=== PATIENT | female | born 1995 | race Caucasian/White ===

== ENCOUNTER 2020-07-14 05:41 | Emergency (ER) | payer OTHER ==
[~2020-07-14] VITALS: Ht 165.1 cm; Wt 68.0 kg
--- NOTE | 2020-07-14 05:47 | NUR ---
PATIENT CAME TO ER BED 16 C/O RASH INSIDE AND AROUND THE PELVIC AND BUTTOCKS REGION. PATIENT STATES THAT SHE USED [facility] AND BEGAN HAVING RASHES AROUND 2 DAYS AGO. PATIENT DENIES ANY VAGINAL DISCHARGE. PATIENT DENIES NAUSEA VOMITING. PATIENT IS AAOX4. AMBULATORY WITH A STEADY GAIT. BREATHING EVENLY AND UNLABORED ON ROOM AIR.
--- NOTE | 2020-07-14 06:32 | NUR ---
pt refused to provide urine sample at this time. will f/u
[2020-07-14] MEDS ORDERED: CLINDAMYCIN 900 MG/6 ML VIAL ONE (06:49)
[2020-07-14] MEDS ORDERED: SULFAMETH/TRIMETH 800/160 MG 1 UDTAB TABLET ONE (06:50)
[2020-07-14] MEDS: SULFAMETH/TRIMETH 800/160 MG 1 UDTAB TABLET PO ONE (07:07)
[2020-07-14] MEDS: CLINDAMYCIN 900 MG/6 ML VIAL IM ONE (07:07)
[2020-07-14 07:17] VITALS: BP 132/78
--- NOTE | 2020-07-14 07:17 | NUR ---
Patient discharged to home in stable condition. Written and verbal after care instructions given. Patient verbalizes understanding of instruction.
--- NOTE | 2020-07-14 07:18 | NUR ---
spoke with Farooq from [facility], she will send a ride that will come [id number]
== END 2020-07-14 07:18 | disposition home or self-care (01) ==
LOC: ER 05:44
DX: A49.02 Methicillin resistant Staphylococcus aureus infection, unspecified site (principal)
CPT/HCPCS: 96372; 99283; J3490